=== PATIENT | female | born 1990 | race Caucasian/White ===

== ENCOUNTER 2020-10-30 20:17 | Emergency (ER) | payer MEDICAID ==
[~2020-10-30] VITALS: Ht 160 cm; Wt 51.7 kg
[2020-10-30 20:46] VITALS: BP 111/78; Ht 160 cm; Wt 51.7 kg
== END 2020-10-30 22:58 | disposition home or self-care (01) ==
LOC: ED 20:17
DX: J02.0 Streptococcal pharyngitis (principal)